=== PATIENT | female | born 1990 | race Caucasian/White ===

== ENCOUNTER 2017-12-11 08:19 | Emergency (ER) | payer BC ==
[2017-12-11] MEDS ORDERED: Dexamethasone IV* 4 MG/ML 1 ML (4 MG) IM ONE (08:32)
[2017-12-11] MEDS ORDERED: Ketorolac INJ* 60 MG/2 ML VIAL IM ONE (08:32)
[2017-12-11] MEDS ORDERED: Orphenadrine Citrate IV* 30 MG/ML 2 ML VIAL IM ONE (08:32)
--- NOTE | 2017-12-11 09:02 | RAD ---
HISTORY: Back pain COMPARISONS: None VIEWS: 3 , Frontal, lateral, and coned-down lateral sacral views of the lumbar spine FINDINGS: ALIGNMENT: The alignment is normal. VERTEBRAL BODIES: The vertebral body heights are normal. The interpedicular distances are normal. JOINTS: The facet joints are normal. INTERVERTEBRAL DISCS: The intervertebral disc heights are normal. SOFT TISSUE: Unremarkable. OTHER: The pelvis is unremarkable. The lung bases are clear. IMPRESSION: UNREMARKABLE RADIOGRAPH 7 THE LUMBAR SPINE
[2017-12-11] MEDS ORDERED: Dexamethasone IV* 4 MG/ML 5 ML VIAL (20 MG) IVPB ONE (09:19)
[2017-12-11] MEDS ORDERED: Ketorolac INJ* 30 MG/ML 1 ML VIAL IV PUSH ONE (09:20)
[2017-12-11] MEDS ORDERED: Orphenadrine Citrate IV* 30 MG/ML 2 ML VIAL IV ONE (09:20)
[2017-12-11 10:27] LABS: Urine Appearance Clear; Urine Blood 1+ (Negative); Urine Color Yellow; Urine Ketones Negative (Negative); Urine Protein Negative (Negative); Urine Specific Gravity 1.026 (1.010-1.030); Urine Urobilinogen Negative (Negative)
[2017-12-11 11:32] VITALS: BP 107/58
--- NOTE | 2017-12-12 10:12 | ED ---
Alethea Multani Gabriel, scribed for Wally Loera MD on 12/11/17 at 0838 . Back Pain - HPI Summary HPI Summary: This patient is a 27 year old F presenting to [facility] with a chief complaint of bilateral lower back pain since 12/10/17. The patient rates the pain 10/10 in severity and radiating down her left leg. Patient reports inability to urinate since waking up. Patient denies trauma. 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 Hx of back pain. - History of Current Complaint Chief Complaint: EDBackInjuryPain Stated Complaint: LOW BACK PAIN Time Seen by Provider: 12/11/17 08:28 Hx Obtained From: Patient Onset/Duration: Lasting Days - 1, Still Present Onset/Duration: Still Present Timing: Constant Back Pain Location: Is Diffuse - through out the lower back Severity Initially: Severe Severity Currently: Severe Pain Intensity: 10 Pain Scale Used: 0-10 Numeric Associated Signs And Symptoms: Positive: Negative - trauma, Other - unable to urinate Related History: Previous Back Injury - back pain in the past - Allergies/Home Medications Allergies/Adverse Reactions: Allergies Allergy/AdvReac Type Severity Reaction Status Date / Time No Known Allergies Allergy Verified 07/07/14 09:28 PMH/Surg Hx/FS Hx/Imm Hx Endocrine/Hematology History: Denies: Hx Diabetes, Hx Systemic Lupus Erythematosus, Hx Thyroid Disease, Hx Anemia, Hx Unexplained Bleeding, Autoimmune Disease Cardiovascular History: Denies: Hx Aneurysm, Hx Angioplasty, Hx Atrial Fibrillation, Hx Hypercholesterolemia, Hx Hypotension, Hx Hypertension, Hx Myocardial Infarction , Hx Pacemaker/ICD, Hx Syncope Respiratory History: Denies: Hx Asthma, Hx Bronchopulmonary Dysplasia, Hx Chronic Bronchitis GI History: Denies: Hx Cirrhosis, Hx Crohn's Disease, Hx Diverticulosis History: Denies: Hx Acute Renal Failure, Hx Benign Prostatic Hyperplasia Musculoskeletal History: Denies: Hx Arthritis, Hx Rheumatoid Arthritis, Hx Back Problems Sensory History: Denies: Hx Cataracts, Hx Contacts or Glasses, Hx Eye Injury Opthamlomology History: Denies: Hx Cataracts, Hx Contacts or Glasses, Hx Eye Injury, Hx Eye Prosthesis EENT History: Denies: Hx Deafness, Hx Hearing Problem, Hx Hearing Aid Neurological History: Reports: Other Neuro Impairments/Disorders - back pain Denies: Hx CVA, Hx Dementia Psychiatric History: Reports: Hx Anxiety, Hx Panic Disorder - panic attacks - Surgical History Surgery Procedure, Year, and Place: ON 10/02/2013 - Immunization History Date of Tetanus Vaccine: Unk Date of Influenza Vaccine: Fall 2012 Infectious Disease History: No Infectious Disease History: Denies: Traveled Outside the [place] in Last 30 Days - Family History Known Family History: Positive: Hypertension - father Negative: Cardiac Disease, Diabetes, Renal Disease, Respiratory Disease, Seizure Disorder, Blood Disorder - Social History Occupation: Employed Full-time Lives: With Family Alcohol Use: None Substance Use Type: Reports: None Smoking Status (MU): Never Smoked Tobacco Review of Systems Constitutional: Negative - trauma Positive: other - unable to urinate Positive: Other - lower back pain All Other Systems Reviewed And Are Negative: Yes Physical Exam - Summary Physical Exam Summary: VITAL SIGNS: Reviewed. GENERAL: Patient is a well-developed and nourished female. Patient is not in any acute respiratory distress. HEAD AND FACE: No signs of trauma. No ecchymosis, hematomas or skull depressions. No sinus tenderness. EYES: PERRLA, EOMI x 2, No injected conjunctiva, no nystagmus. EARS: Hearing grossly intact. Ear canals and tympanic membranes are within normal limits. MOUTH: Oropharynx within normal limits. NECK: Supple, trachea is midline, no adenopathy, no JVD, no carotid bruit, no c- spine tenderness, neck with full ROM. CHEST: Symmetric, no tenderness at palpation LUNGS: Clear to auscultation bilaterally. No wheezing or crackles. CVS: Regular rate and rhythm, S1 and S2 present, no murmurs or gallops appreciated. ABDOMEN: Soft, non-tender. No signs of distention. No rebound no guarding, and no masses palpated. Bowel sounds are normal. Back: Vertebral tenderness in lumbar spine, left paraspinal tenderness. Patient is ambulating EXTREMITIES: FROM in all major joints, no edema, no cyanosis or clubbing. NEURO: Alert and oriented x 3. No acute neurological deficits. Speech is normal and follows commands. SKIN: Dry and warm Triage Information Reviewed: Yes Vital Signs On Initial Exam: Initial Vitals Temp Pulse Resp BP Pulse Ox 97.8 F 104 20 136/88 97 12/11/17 08:21 12/11/17 08:21 12/11/17 08:21 12/11/17 08:21 12/11/17 08:21 Vital Signs Reviewed: Yes Diagnostics - Vital Signs Vital Signs Temp Pulse Resp BP Pulse Ox 12/11/17 08:21 97.8 F 104 20 136/88 97 - Laboratory Lab Results: Lab Results 12/11/17 Range/Units 09:46 Urine Color Yellow Urine Appearance Clear Urine pH 5.0 (5-9) Ur Specific [place] 1.026 (1.010-1.030) Urine Protein Negative (Negative) Urine Ketones Negative (Negative) Urine Blood 1+ H (Negative) Urine Nitrate Negative (Negative) Urine Bilirubin Negative (Negative) Urine Urobilinogen Negative (Negative) Ur Leukocyte Esterase Trace H (Negative) Urine WBC (Auto) Trace(0-5/hpf) (Absent) Urine RBC (Auto) 2+(6-10/hpf) H (Absent) Ur Squamous Epith Cells Present H (Absent) Urine Bacteria Absent (Absent) Urine Glucose Negative (Negative) Lab Statement: Any lab studies that have been ordered have been reviewed, and results considered in the medical decision making process. - Radiology L-spine Xray Radiology Interpretation Completed By: Radiologist - UNREMARKABLE RADIOGRAPH 7 THE LUMBAR SPINE Back Pain Course/Dx - Course Assessment/Plan: Physical exam revealed tenderness in the paraspinal muscles of the lumbar spine. Patient is ambulating without any difficulty to the room and to the x ray room. Lumbar x ray negative for acute pathology. Patient given Toradol, Decadron and Norflex. Patient reported Urinary retention but bladder scan is only 300 cc. Patient urinated in her own and the post residual bladder scan was 0. Patient declined a rectal exam. At this point I discussed all the findings and test results with the patient. Patient was instructed to return to the emergency room immediately if any of the symptoms return or worsens. Patient understands and agrees. Patient is able to ambulate freely w/o aid or limp in the ER. Plan of care was discussed with the patient and patient understands and agrees. All questions were answered at patient satisfaction. There were no further complaints or concerns. Neurological exam before discharge: Patient is alert and oriented x 3. No acute neurological deficits. Patient is hemodynamically stable. Patient is to follow up with primary care physician in the next 2 3 days. He understands and agrees. - Diagnoses Differential Diagnosis/HQI/PQRI: Positive: Cauda Equina Syndrome, Fracture, Herniated Disc, Osteoporosis, Strain, Sprain Provider Diagnoses: Lumbago Discharge - Discharge Plan Condition: Stable Disposition: HOME Prescriptions: Methocarbamol [Robaxin-750 MG TAB] 750 mg PO TID #9 tab Methylprednisolone [Medrol Dosepak 4 MG*] 0 mg PO .SEE INNA INSTRUCTION #1 inna Naproxen [Naprosyn 500 mg] 500 mg PO BID PRN #20 tab PRN Reason: Pain Referrals: No Primary Care Phys,NOPCP [Medical Doctor] - [facility] [place] [facility] [place]] Additional Instructions: RETURN TO EMERGENCY DEPARTMENT FOR ANY NEW OR WORSENING SYMPTOMS The documentation as recorded by the Alethea galvez Gabriel accurately reflects the service I personally performed and the decisions made by , Wally Loera MD.
== END 2017-12-11 11:32 | disposition home or self-care (01) ==
LOC: ED 08:19
DX: M54.5 Low back pain (principal)
CPT/HCPCS: 36415; 72100; 81003; 81015; 86703; 87086; 96372; 96374; 96375; 99284; J1100; J1885; J2360